=== PATIENT | female | born 1990 | race Caucasian/White ===

== ENCOUNTER 2018-03-28 01:10 | Emergency (ER) | payer OTHER ==
[~2018-03-28] VITALS: Ht 157.5 cm; Wt 113.4 kg
[2018-03-28] MEDS ORDERED: ALBUTEROL2.5 MG/3 M INH (01:21)
[2018-03-28] MEDS ORDERED: Norco 5mg/325mg tab ORAL ONE (01:30)
[2018-03-28 01:40] VITALS: BP 118/62
[2018-03-28 01:53] LABS: APPEARANCE,URINE CLEAR; BILIRUBIN, URINE NEGATIVE (NEGATIVE); COLOR,URINE YELLOW; GLUCOSE, URINE (UA) NEGATIVE (NEGATIVE); KETONES,URINE NEGATIVE (NEGATIVE); LEUKOCYTE ESTERASE ,URINE 3+ (NEGATIVE); NITRITE,URINE NEGATIVE (NEGATIVE); PH,URINE 5 (4.5-8.0); PROTEIN,URINE 1+ (NEGATIVE); UROBILINOGEN,URINE NORMAL MG/DL (0.0-1.0)
[2018-03-28] MEDS ORDERED: Cephalexin 500mg cap ORAL ONE (02:15)
--- NOTE | 2018-03-28 03:22 | Diagnostic Imaging Report ---
EXAM: CT Abdomen and Pelvis Without Intravenous Contrast. CLINICAL HISTORY: Abdominal pain. TECHNIQUE: Axial computed tomography images of the abdomen and pelvis without intravenous contrast. CTDI is 32.9 mGy and DLP is 1706 mGy-cm. One or more of the following dose reduction techniques were used: automated exposure control, adjustment of the mA and/or kV according to patient size, use of iterative reconstruction technique. COMPARISON: No relevant prior studies available. FINDINGS: Lower thorax: No acute findings. ABDOMEN: Liver: Hepatic steatosis. Mild hepatomegaly. Within the limitations of a nonenhanced exam, no focal hepatic lesion is seen. Gallbladder and bile ducts: Unremarkable. No calcified stones. No ductal dilation. Pancreas: Unremarkable. No ductal dilation. Spleen: Unremarkable. No splenomegaly. Adrenals: Unremarkable. No mass. Kidneys and ureters: Unremarkable. No obstructing stones. No hydronephrosis. PELVIS: Bladder: Unremarkable. No stones. Reproductive: Unremarkable as visualized. Appendix: No findings to suggest acute appendicitis. ABDOMEN + PELVIS: Stomach and bowel: Unremarkable. No obstruction. No mucosal thickening. Peritoneum: Unremarkable. No significant fluid collection. No free air. Lymph nodes: Unremarkable. No enlarged lymph nodes. Vasculature: Unremarkable. No aortic aneurysm. Bones: No acute fracture. Chronic appearing central compression deformity of the L2 vertebral body. IMPRESSION: No acute inflammatory or obstructive process is identified within the abdomen or pelvis. Hepatic steatosis and mild hepatomegaly.
[2018-03-28] MEDS ORDERED: IBUPROFEN600 MG ORAL (03:28)
[2018-03-28] MEDS ORDERED: CEPHALEXIN500 MG ORAL (03:28)
--- NOTE | 2018-03-28 03:28 | Emergency Room Report ---
History of Present Illness General Chief Complaint: Abdominal Pain Source: Patient Present Illness HPI Is a 27-year-old female with no past medical history. She presents with chief complaint of left lower quadrant pain. Onset today. No nausea no vomiting. Pain is sharp in nature. No dysuria frequency. No hematuria. Pain is 8 out of 10. No back pain. Nothing made it better. Nothing made it worse. Allergies: Coded Allergies: No Known Allergies (Unverified , 03/28/18) Patient History Past Medical History: see triage record, old chart reviewed Past Surgical History: none Pertinent Family History: none Social History: Denies: smoking Last Menstrual Period: 03/10/18 Now: No : 1 Para: 1 Immunizations: other Reviewed Nursing Documentation: PMH: Agreed; PSxH: Agreed Nursing Documentation-PMH Past Medical History: No History, Except For Hx Asthma: Yes Review of Systems Eye: Denies: eye pain, blurred vision ENT: Denies: ear pain, nose congestion, throat swelling Respiratory: Denies: cough, shortness of breath Cardiovascular: Denies: chest pain, palpitations Gastrointestinal: Reports: abdominal pain; Denies: diarrhea, nausea, vomiting Musculoskeletal: Denies: back pain, joint pain Skin: Denies: rash Neurological: Denies: headache, numbness Endocrine: Denies: increased thirst, increased urine Hematologic/Lymphatic: Denies: easy bruising All Other Systems: negative except mentioned in HPI Physical Exam Vital Signs Date Time Temp Pulse Resp B/P (MAP) Pulse Ox O2 Delivery O2 Flow Rate FiO2 03/28/18 01:19 97.5 89 16 118/78 97 Room Air 97.5 vitals normal Sp02 EP Interpretation: reviewed, normal General Appearance: well appearing, no apparent distress, alert, obese Head: normocephalic, atraumatic Eyes: bilateral eye PERRL, bilateral eye EOMI ENT: hearing grossly normal, normal pharynx Neck: full range of motion, supple, no meningismus Respiratory: chest non-tender, lungs clear, normal breath sounds Cardiovascular #1: regular rate, rhythm, no murmur Gastrointestinal: normal bowel sounds, no mass, no organomegaly, no bruit, non- distended, tenderness - left lower quadrant tenderness Musculoskeletal: back normal, gait/station normal, normal range of motion Neurologic: alert, oriented x3 Psychiatric: mood/affect normal Skin: warm/dry Medical Decision Making Diagnostic Impression: Primary Impression: Abdominal pain Qualified Codes: R10.32 - Left lower quadrant pain Additional Impressions: UTI (urinary tract infection) Qualified Codes: N30.00 - Acute cystitis without hematuria Morbid obesity with BMI of 45.0-49.9, adult ER Course Patient with abdominal pain and left lower quadrant. Most likely an ascending UTI. No pyelonephritis. No acute abdomen. No obstruction. Antibiotics given here. Pain is well-controlled now. We'll discharge home. CT/MRI/US Diagnostic Results CT/MRI/US Diagnostic Results : Imaging Test Ordered: CT abdomen and pelvis Impression no acute process per radiologist. Last Vital Signs Date Time Temp Pulse Resp B/P (MAP) Pulse Ox O2 Delivery O2 Flow Rate FiO2 03/28/18 02:56 97.5 03/28/18 01:40 82 16 118/62 98 Room Air Status: improved Disposition: HOME, SELF-CARE Condition: Stable Scripts Cephalexin* (KEFLEX*) 500 Mg Capsule 500 MG ORAL TID, #21 CAP Prov: CARIE FERREIRA M.D. 03/28/18 Ibuprofen* (MOTRIN*) 600 Mg Tablet 600 MG ORAL THREE TIMES A DAY, #30 TAB 0 Refills Prov: CARIE FERREIRA M.D. 03/28/18 Referrals: NON PHYSICIAN (PCP) Additional Instructions: Follow-up with your in 3-5 days. Return if worse. CARIE FERREIRA M.D. Mar 28, 2018 03:28
[2018-03-28 03:40] VITALS: BP 138/76
== END 2018-03-28 03:40 | disposition home or self-care (01) ==
LOC: EMR 01:53
DX: R10.32 Left lower quadrant pain (principal); N39.0 Urinary tract infection, site not specified; E66.01 Morbid (severe) obesity due to excess calories; Z68.42 Body mass index [BMI] 45.0-49.9, adult
CPT/HCPCS: 74176; 81003; 81025; 87086; 99284

== ENCOUNTER 2019-09-16 19:55 | Emergency (ER) | payer MEDICAID, OTHER ==
[~2019-09-16] VITALS: Ht 157.5 cm; Wt 119.3 kg
[~2019-09-16 19:55] MED LIST: ALBUTEROL2.5 MG/3 M INH; CEPHALEXIN500 MG ORAL; IBUPROFEN600 MG ORAL
[2019-09-16 20:06] VITALS: BP 111/63
--- NOTE | 2019-09-16 20:06 | NUR ---
ED Nurse Note: Walk-in patient with complaints of chest pain 05/01.
--- NOTE | 2019-09-16 20:10 | NUR ---
ED Nurse Note: Bedside Ekg shows sinus rhythm.
[2019-09-16] MEDS ORDERED: FAMOTIDINE20 MG ORAL (20:28)
--- NOTE | 2019-09-16 20:29 | Emergency Room Report ---
History of Present Illness General Chief Complaint: Chest Pain Source: Patient Present Illness HPI 29-year-old female history of hypertension, history of gestational diabetes presents with atypical burning chest pain that started 40 minutes prior to arrival no aggravating alleviating factors severity is mild, constant not worse with exertion, patient was at the dinner table she feels a burning sensation patient presents for evaluation, family history of cardiac disease age 60s Allergies: Coded Allergies: No Known Allergies (Unverified , 03/28/18) Patient History Past Medical History: see triage record Last Menstrual Period: 08/09/19 Now: No Reviewed Nursing Documentation: PMH: Agreed; PSxH: Agreed Nursing Documentation-PMH Hx Asthma: Yes Review of Systems All Other Systems: negative except mentioned in HPI Physical Exam Vital Signs Date Time Temp Pulse Resp B/P (MAP) Pulse Ox O2 Delivery O2 Flow Rate FiO2 09/16/19 20:01 97.9 88 19 111/63 (79) 98 Room Air Sp02 EP Interpretation: reviewed, normal General Appearance: well appearing, no apparent distress, alert Head: normocephalic, atraumatic Eyes: bilateral eye PERRL, bilateral eye EOMI ENT: uvula midline, moist mucus membranes Neck: supple, thyroid normal, supple/symm/no masses Respiratory: lungs clear, no respiratory distress, no retraction, no accessory muscle use Cardiovascular #1: normal peripheral pulses, regular rate, rhythm, no edema, no gallop, no murmur Gastrointestinal: soft, no guarding, no rebound, tenderness - mild tenderness epigastrically Musculoskeletal: normal inspection Neurologic: alert, oriented x3 Psychiatric: mood/affect normal Skin: no rash, warm/dry Medical Decision Making Diagnostic Impression: Primary Impression: Chest pain Qualified Codes: R07.9 - Chest pain, unspecified Additional Impression: Gastritis Qualified Codes: K29.00 - Acute gastritis without bleeding ER Course 29-year-old female presents with epigastric pain differential diagnosis includes gastritis, ACS, pancreatitis Low suspicion for ACS EKG negative, also her age Patient significantly improved status post GI cocktail EKG Diagnostic Results EKG Time: 20:13 EP Interpretation: NSR, rate 91, QTc 442, no acute ST elevations, normal axis Last Vital Signs Date Time Temp Pulse Resp B/P (MAP) Pulse Ox O2 Delivery O2 Flow Rate FiO2 09/16/19 20:01 97.9 88 19 111/63 (79) 98 Room Air Disposition: HOME, SELF-CARE Condition: Stable Scripts Famotidine* (Pepcid 20mg tablet*) 20 Mg Tablet 20 MG ORAL TWICE A DAY, #60 TAB 0 Refills Prov: Luís So MD 09/16/19 Referrals: [facility] Patient Instructions: Nonspecific Chest Pain, Heartburn Additional Instructions: The patient was provided with discharge instructions, notified to follow-up with a primary care doctor and or specialist in the next 24-48 hours, and to return to the ED if they have worsening of their symptoms. Please note that this report is being documented using [employer] technology. This can lead to erroneous entry secondary to incorrect interpretation by the dictating instrument. Luís So MD Sep 16, 2019 20:29
[2019-09-16] MEDS ORDERED: Lidocaine 2% Visc 15ml soln ORAL ONE (20:30)
[2019-09-16] MEDS ORDERED: Dicyclomine HCl 10mg/5ml oral soln ORAL ONE (20:30)
[2019-09-16] MEDS ORDERED: Ketorolac 30mg Inj IM ONE (20:30)
[2019-09-16] MEDS ORDERED: Mylanta II UD 30ml ORAL ONE (20:30)
--- NOTE | 2019-09-16 20:30 | NUR ---
ED Nurse Note: Patien toleratd medication administration well. Will continue to monitor. urine specimen collected and sent to lab.
[2019-09-16 21:22] VITALS: BP 111/63
--- NOTE | 2019-09-16 21:26 | NUR ---
ED Nurse Note: Patient cleared for discharge by Natalie beltrán. Patient has no complaints at this time. patient verbalized understanding of discharge instructions. ID band removed. patient departed with all belongings accompanied by significant other.
== END 2019-09-16 21:26 | disposition home or self-care (01) ==
LOC: EMR 20:30
DX: R07.9 Chest pain, unspecified (principal); K29.00 Acute gastritis without bleeding; J45.909 Unspecified asthma, uncomplicated
CPT/HCPCS: 81025; 93005; 96372; J1885; Z7502; 99283